=== PATIENT | female | born 2000 | race Caucasian/White ===

== ENCOUNTER 2018-08-08 04:26 | Emergency (ER) | payer OTHER ==
[2018-08-08] MEDS ORDERED: Ondansetron ODT TAB* 4 MG SL ONE (05:15)
[2018-08-08] MEDS ORDERED: NS 0.9% 1000 ML** 1,000 ML IV ONE ×3 (05:43→07:23)
[2018-08-08] MEDS ORDERED: Ondansetron INJ* 2 MG/ML VIAL IV ONE (05:43)
--- NOTE | 2018-08-08 05:47 | ED ---
Nausea/Vomiting/Diarrhea HPI - HPI Summary HPI Summary: Patient is a 17-year-old female presenting to the ED with nausea, vomiting, diarrhea and abdominal pain since proximally 10 PM last evening. She states she does not feel she anything abnormal. She did eat and drink okay last evening for dinner, however has been unable to keep anything down since that time. She endorses approximately 10+ episodes of emesis and 3 episodes diarrhea. Denies any fevers, sweats, chills. She states nausea and vomiting began her symptoms and later she developed mid abdominal pain. The abdominal pain is nonradiating. She denies any urinary symptoms including back pain. - History of Current Complaint Chief Complaint: EDNauseaVomitDiarrh Stated Complaint: STOMACH BUG, BLOOD IN STOOL-PER PT Time Seen by Provider: 08/08/18 05:34 Hx Obtained From: Patient ?: No Onset/Duration: Sudden Onset Timing: Constant Severity Initially: Moderate Severity Currently: Moderate Pain Intensity: 7 Pain Scale Used: 0-10 Numeric Character: Cramping Aggravating Factor(s): Nothing Alleviating Factor(s): Nothing Vomiting Frequency: Every 1-2 hours Nausea/Vomiting Duration: 0-12 hours Vomiting Characteristics: Retching Diarrhea Presence: Yes Diarrhea Frequency: Every 1-2 hours Diarrhea Duration: 0-12 hours - Risk Factors Influenza Risk Factors: Negative Surgical Obstruction Risk Factor(s): Negative - Allergies/Home Medications Allergies/Adverse Reactions: Allergies Allergy/AdvReac Type Severity Reaction Status Date / Time lactose Allergy Nausea Verified 08/08/18 05:32 Home Medications: Home Medications Cholecalciferol (Vitamin D3) [Vitamin D3] 2,000 unit PO DAILY 08/08/18 [History Confirmed 08/08/18] [place] Carbonate ER (NF) 300 mg PO DAILY 08/08/18 [History Confirmed 08/08/18] [place] Carbonate ER (NF) 900 mg PO BEDTIME 08/08/18 [History Confirmed 08/08/18 ] Metformin HCl 500 mg PO BID 08/08/18 [History Confirmed 08/08/18] lamoTRIgine [Lamotrigine] 200 mg PO DAILY 08/08/18 [History Confirmed 08/08/18] PMH/Surg Hx/FS Hx/Imm Hx Previously Healthy: Yes Psychiatric History: Denies: Hx Eating Disorder, Hx of Violent Episodes Against Others - Immunization History Hx Pertussis Vaccination: No Immunizations Up to Date: Yes Infectious Disease History: No Infectious Disease History: Denies: Traveled Outside the [place] in Last 30 Days - Social History Occupation: Unemployed Lives: With Family Alcohol Use: None Hx Substance Use: No Substance Use Type: Reports: None Hx Tobacco Use: No Smoking Status (MU): Never Smoked Tobacco Review of Systems Positive: Fatigue, Skin Diaphoresis. Negative: Fever, Chills Negative: Dental Pain, Sore Throat Negative: Palpitations, Chest Pain Negative: Shortness Of Breath, Cough Positive: Abdominal Pain, Vomiting, Diarrhea, Nausea Genitourinary: Negative Positive: no symptoms reported, see HPI. Negative: burning, dysuria, flank pain , hematuria Negative: Arthralgia, Myalgia Skin: Negative Neurological: Negative All Other Systems Reviewed And Are Negative: Yes Physical Exam Triage Information Reviewed: Yes Vital Signs On Initial Exam: Initial Vitals Temp Pulse Resp BP Pulse Ox 99.1 F 88 18 117/75 99 08/08/18 04:27 08/08/18 04:27 08/08/18 04:27 08/08/18 04:27 08/08/18 04:27 Vital Signs Reviewed: Yes Appearance: Positive: Well-Appearing, Well-Nourished Skin: Positive: Warm, Skin Color Reflects Adequate Perfusion Head/Face: Positive: Normal Head/Face Inspection Eyes: Positive: EOMI, SABRINA, Conjunctiva Clear Neck: Positive: Supple, No Lymphadenopathy Respiratory/Lung Sounds: Positive: Clear to Auscultation, Breath Sounds Present Cardiovascular: Positive: RRR, Pulses are Symmetrical in both Upper and Lower Extremities Musculoskeletal: Positive: Normal, Strength/ROM Intact Neurological: Positive: Speech Normal Psychiatric: Positive: Normal, Affect/Mood Appropriate Diagnostics - Vital Signs Vital Signs Temp Pulse Resp BP Pulse Ox 08/08/18 05:14 96 128/80 97 08/08/18 05:13 93 08/08/18 04:27 99.1 F 88 18 117/75 99 - Laboratory Result Diagrams: 08/08/18 06:06 08/08/18 06:06 Lab Statement: Any lab studies that have been ordered have been reviewed, and results considered in the medical decision making process. Naus/Vom/Diarrhea Course/Dx - Course Course Of Treatment: During the course of treatment, the patient is evaluated for nausea, vomiting, diarrhea and mid abdominal pain. She is given 1L fluids and 4mg Zofran on arrival. Labs obtained which has an elevated lactic acid at 3.9. Patient is given 3 L fluids over the course of 3.5 hours. Patient is feeling improved after 4 mg Zofran and 10 mg Reglan. She will be discharged home with nausea and vomiting and is given a prescription for Zofran and Reglan. She will return if she has any worsening or changing symptoms. She denies any abdominal pain at this time. UA and influenza negative. - Differential Dx/Diagnosis Differential Diagnoses - Female: Other - Nausea, vomiting, diarrhea, viral syndrome Provider Diagnosis: Viral syndrome, Nausea Condition At Discharge: Stable Discharge - Sign-Out/Discharge Documenting (check all that apply): Patient Departure Patient Received Moderate/Deep Sedation with Procedure: No - Discharge Plan Condition: Stable Disposition: HOME Prescriptions: Metoclopramide TAB* [Reglan TAB*] 10 mg PO Q8H #12 tab MDD 3 Ondansetron ODT TAB* [Zofran 4 MG Odt TAB*] 4 mg PO Q6H PRN #12 tab.odt MDD 4 PRN Reason: Nausea Patient Education Materials: Acute Nausea and Vomiting (ED), Viral Syndrome (ED ) Referrals: Benjamin Chen MD [Primary Care Provider] - Additional Instructions: Drink plenty of fluids Zofran up to every 4 hours for nausea and vomiting Reglan 1 tab every 8 hours for nausea and vomiting Return to the ED if he continued to not be able to eat or drink 8 hours - Billing Disposition and Condition Condition: STABLE Disposition: Home
[2018-08-08 06:14] LABS: ABS Basophils 0 10^3/ul (0-0.2); ABS Eosinophils 0.1 10^3/ul (0-0.6); ABS Lymphocytes 0.3 10^3/ul (1.0-4.8); ABS Monocytes 0.3 10^3/ul (0-0.8); ABS Neutrophils 5.5 10^3/ul (1.5-7.7); ABS Nucleated RBC 0 10^3/ul; Eosinophil % 1.4 %; Hematocrit 36 % (35-47); Hemoglobin 11.4 g/dl (12.0-16.0); Lymphocyte % 5.2 %; Mean Corpuscular HGB Conc 32 g/dl (31-36); Mean Corpuscular Hemoglobin 24 pg (27-31); Mean Corpuscular Volume 77 fL (80-97); Mean Platelet Volume 7.2 fL (7.4-10.4); Nucleated Red Blood Cells % 0; Platelet Count 469 10^3/ul (150-450); Red Blood Count 4.68 10^6/ul (4.00-5.40); Red Cell Distribution Width 16 % (10.5-15); White Blood Count 6.2 10^3/ul (3.5-10.8)
[2018-08-08 06:32] LABS: Influenza A Molecular NEGATIVE (Negative); Influenza B Molecular NEGATIVE (Negative)
[2018-08-08 06:36] LABS: ALT 13 U/L (7-52); AST 11 U/L (13-39); Albumin 4.3 g/dL (3.2-5.2); Albumin/Globulin Ratio 1.7 (1-3); Alkaline Phosphatase 102 U/L (34-104); Anion Gap 12 mmol/L (2-11); BUN/Creatinine Ratio 14.4 (8-20); Blood Urea Nitrogen 13 mg/dL (6-24); C Reactive Protein 20.54 mg/L (<8.01); CO2 Carbon Dioxide 19 mmol/L (22-32); Calcium 8.9 mg/dL (8.6-10.3); Chloride 104 mmol/L (101-111); EGFR African American 97.6 (>60); EGFR Non-African American 80.7 (>60); Globulin 2.6 g/dL (2-4); Glucose 169 mg/dL (70-100); Magnesium 1.6 mg/dL (1.9-2.7); Potassium 4.7 mmol/L (3.5-5.0); Sodium 135 mmol/L (135-145); Total Protein 6.9 g/dL (6.4-8.9)
[2018-08-08 06:38] LABS: HCG Pregnancy < 0.60 mIU/mL
[2018-08-08] MEDS ORDERED: Metoclopramide IV* 5 MG/ML 2 ML VIAL IV ONE (07:45)
[2018-08-08 09:30] LABS: Urine Appearance Clear; Urine Bilirubin Negative (Negative); Urine Blood Negative (Negative); Urine Color Yellow; Urine Glucose Negative (Negative); Urine Ketones Negative (Negative); Urine Nitrite Negative (Negative); Urine Protein Negative (Negative); Urine Specific Gravity 1.017 (1.010-1.030); Urine Urobilinogen Negative (Negative)
[2018-08-08 10:08] VITALS: BP 124/80
== END 2018-08-08 10:08 | disposition home or self-care (01) ==
LOC: ED 04:26
DX: B34.9 Viral infection, unspecified (principal); R11.2 Nausea with vomiting, unspecified
CPT/HCPCS: 36415; 80053; 81003; 83605; 83690; 83735; 84702; 85025; 86140; 96361; 96374; 96375; 99283; A9270-GY; J2405; J2765